=== PATIENT | female | born 1995 ===

== ENCOUNTER 2018-11-19 07:43 | Emergency (ER) | payer OTHER ==
[~2018-11-19] VITALS: Ht 172.7 cm; Wt 72.6 kg
[2018-11-19] MEDS ORDERED: TRINTELLIX20 MG (08:04)
[2018-11-19] MEDS ORDERED: PAMELOR25 MG (08:04)
[2018-11-19] MEDS ORDERED: INTESTINEX680 M1 PO (09:32)
[2018-11-19] MEDS ORDERED: BACTRIM DS TAB1 EACH PO (09:32)
[2018-11-19] MEDS ORDERED: URIN D.S. TABL1 EACH PO (09:32)
== END 2018-11-19 10:15 | disposition home or self-care (01) ==
LOC: ER 07:43
DX: N39.0 Urinary tract infection, site not specified (principal)